=== PATIENT | female | born 1950 | race Caucasian/White ===

== ENCOUNTER 2024-11-18 08:33 | Outpatient (CLI) | payer MEDICARE, SELFPAY ==
--- NOTE | ~2024-11-18 | XR_ITS ---
Left Knee Technique: AP, lateral, and sunrise views were obtained. Clinical History: Pain Findings: No fracture or dislocation is seen. Osseous alignment is anatomic. Joint spaces are preserv ed with mild degenerative spurring. Soft tissues are unremarkable. No joint effusion is seen. Impression: Mild degenerative spurring. Reviewed, dictated and finalized at location . Impression: Mild degenerative spurring.
== END 2024-11-18 08:34 | disposition home or self-care (01) ==
PROVIDERS: PCP Internal Medicine; Visit Provider Internal Medicine
DX: M25.762 Osteophyte, left knee (principal)
CPT/HCPCS: 73562

== ENCOUNTER 2025-01-23 10:14 | Outpatient (CLI) | payer MEDICARE, SELFPAY ==
--- NOTE | ~2025-01-23 | DEXA_ITS ---
Bone Density Report Name: DARON CARDOZO Age: 74 Sex: Female Ethnicity: White Date of : 1950 Indication: postmenopausal; screening for osteoporosis; height loss; Referring Provider: JAC, ALISSON Teixeira Study: Bone densitometry was performed. Exam Date: January 23, 2025 Accession number: [id number] Bone Density: Region BMD T-score Z-score Classification AP Spine(L1-L4) 1.028 -0.2 2.1 Normal Femoral Neck (Left) 0.639 -1.9 0.0 Osteopenia Total Hip (Left) 0.799 -1.2 0.5 Osteopenia Femoral Neck (Right) 0.650 -1.8 0.1 Osteopenia Total Hip (Right) 0.790 -1.2 0.4 Osteopenia Total Hip Mean 0.795 -1.2 0.5 Osteopenia World Health Organization criteria for BMD impression classify patients as: Normal (T-score at or above -1.0), Osteopenia (T-score between -1.0 and -2.5), or Osteoporosis (T-score at or below -2.5). 10-year Fracture Risk(1): Major Osteoporotic Fracture 11% Hip Fracture 2.2% Reported Risk Factors: [place] (), Neck BMD=0.639, BMI=32.0 (1) FRAX(R) Version 3.08. Fracture probability calculated for an untreated patient. Fracture probability may be lower if the patient has received treatment. Clinical Information Provided by Patient: Has used the following medications: Vitamin D Patient maximum height was 66 Menopause Age: 57 No regular weight bearing exercise Drinks caffeinated beverages Onset of menses at age 17 Number of children 2 Impression: The patient has low bone mass, based on the Left Femoral Neck T-score. The patient has an estimated ten-year risk of hip fracture of 2.2% and an estimated ten-year risk of major fracture of 11%, based on the WHO FRAX algorithm. Discussion: BONE DENSITY IS LOW AT ONE OR MORE SKELETAL SITES. This patient's lowest T-score is low at one or more skeletal sites. It meets the World Health Organization's (WHO) criteria for ?low bone mass? (T-score between -1.0 and -2.5). The patient's 10-year risk of fracture as calculated by FRAX is less than the threshold where pharmacological therapy is recommended by the National Osteoporosis Foundation (NOF). However, all treatment decisions require clinical judgment and consideration of individual patient factors, including patient preferences, comorbidities, previous drug use, risk factors not captured in the FRAX model (e.g., frailty, falls, vitamin D deficiency, increased bone turnover, interval significant decline in bone density) and possible under or overestimation of fracture risk by FRAX. The patient should follow a healthful lifestyle (good nutrition with adequate calcium and vitamin D, and appropriate weight-bearing exercise). Follow-Up: Consider repeating this study in 2 to 3 years to reassess this patient's status, or sooner if there is some new clinical indication. Reported by: ERIN on 01/23/2025 10:28:00 AM. Reviewed, dictated and finalized at location A.
== END 2025-01-23 10:15 | disposition home or self-care (01) ==
LOC: MICIMG 10:15
PROVIDERS: PCP Internal Medicine; Visit Provider Internal Medicine
DX: M85.89 Other specified disorders of bone density and structure, multiple sites (principal); Z78.0 Asymptomatic menopausal state
CPT/HCPCS: 77080

== ENCOUNTER 2025-04-24 07:50 | Outpatient (CLI) | payer MEDICARE, SELFPAY ==
--- NOTE | ~2025-04-24 | MM_ITS ---
EXAMINATION: MM screening dulce maria BI w bradley HISTORY: Screening TECHNIQUE: Craniocaudal and mediolateral oblique 3-D tomosynthesis images were obtained and synthetic 2-D images were generated. CAD analysis was submitted and interpreted. COMPARISON: No prior mammogram is available for comparison at this institution. BREAST PARENCHYMAL COMPOSITION: Not Dense: The breasts are almost entirely fatty. FINDINGS: There is no mammographic evidence for malignancy in the right breast. There is a cluster of pleomorphic calcifications in the upper outer quadrant of the left breast, middle third. IMPRESSION: 1. Clustered pleomorphic left breast calcifications, upper outer quadrant, middle third. 2. Magnification views are recommended. BI-RADS Category 0: Incomplete: Needs additional imaging evaluation. Reviewed, dictated and finalized at location B. IMPRESSION: 1. Clustered pleomorphic left breast calcifications, upper outer quadrant, midd le third. 2. Magnification views are recommended. BI-RADS Category 0: Incomplete: Needs additional imaging evaluation.
== END 2025-04-24 07:51 | disposition home or self-care (01) ==
LOC: ANHFOHIMG 07:51
PROVIDERS: PCP Internal Medicine; Visit Provider Internal Medicine
DX: Z12.31 Encounter for screening mammogram for malignant neoplasm of breast (principal)
CPT/HCPCS: 77063; 77067

== ENCOUNTER 2025-05-02 08:40 | Outpatient (CLI) | payer MEDICARE, SELFPAY ==
--- NOTE | ~2025-05-02 | MR_ITS ---
EXAMINATION: MR knee LT wo con DATE: 05/02/2025 09:13 INDICATION: Left knee pain TECHNIQUE: Magnetic resonance imaging (MRI) of the left knee was performed without intravenous contrast. Sequences included coronal PD-weighted FSE, coronal PD-weighted FS FSE, sagittal T2-weighted FSE, sagittal PD-weighted FS FSE and axial PD weighted fat saturated FSE. COMPARISON: None. FINDINGS: Medial compartment: Complex medial meniscal tear with longitudinal vertical component at the junction of the middle and peripheral thirds of the posterior horn transitioning to a horizontal longitudinal tear plane extending to the inferior articular surface at the posterior body of the meniscus. Partial-thickness chondral ulceration along the weightbearing medial femoral condyle, involving greater than 50% the cartilage thickness and with small central subchondral osteophyte at the posterior weightbearing medial femoral condyle and less than 50% the cartilage thickness with chondral surface regularity but no degenerative subchondral changes at the anterior to central weightbearing medial femoral condyle. Mild partial-thickness chondral fissuring without degenerative subchondral changes at the catheter anterior to middle thirds of the medial tibial plateau. Lateral compartment: Complex tear of the body and posterior horn of the lateral meniscus. Partial- thickness chondral ulceration and deeper fissuring along the anterior to central weightbearing lateral femoral condyle and posterior half of the lateral tibial plateau. Tiny focus of subarticular edema-like signal change at the posterior lateral tibial plateau. Cartilage thickness appears relatively preserved along the posterior weightbearing lateral femoral condyle but with small central subchondral osteophytes. Patellofemoral compartment: Deep chondral ulceration along the patellar apical ridge and deep chondral fissuring at the inferior aspect of the lateral patellar facet, both without associated degenerative subchondral changes. Less severe partial thickness chondral ulceration at the cephalad aspect of the trochlear groove also without degenerative subchondral changes. Deep chondral ulceration with small central subchondral osteophytes at the inferior aspect of the medial trochlea. Ligaments and tendons: Anterior cruciate ligament is torn with residual frayed ligament tissue and mild hypertrophic change at both the femoral and tibial footplates of the ligament. Posterior cruciate ligament is normal. The medial collateral ligament and fibular collateral ligament complex are normal. The extensor mechanism is normal. The visualized medial and lateral hamstring tendons as well as the iliotibial band are normal. Fluid: Small left knee joint effusion at the suprapatellar pouch. No loose osteochondral bodies identified. Osseous/other: Bone alignment is normal. No fracture or pathologic marrow replacing process. Small marginal osteophytes all 3 components of the knee. IMPRESSION: 1. Complete tear of the anterior cruciate ligament. 2. Complex medial and lateral meniscal tears. 3. 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 Reviewed, dictated and finalized at location A.
== END 2025-05-02 08:41 | disposition home or self-care (01) ==
LOC: MICIMG 08:41
PROVIDERS: PCP Internal Medicine; Visit Provider Orthopaedic Surgery
DX: S83.272A Complex tear of lateral meniscus, current injury, left knee, initial encounter (principal); S83.232A Complex tear of medial meniscus, current injury, left knee, initial encounter; X58.XXXA Exposure to other specified factors, initial encounter; M17.12 Unilateral primary osteoarthritis, left knee
CPT/HCPCS: 73721